=== PATIENT | female | born 1940 | race Caucasian/White ===

== ENCOUNTER 2016-11-01 01:36 | Emergency (ER) | payer MEDICARE, BC | END 2016-11-01 05:52 | disposition home or self-care (01) | LOC: ER 01:36 | CPT/HCPCS: 36415; 80053; 81001; 85025; 87077; 87088; 87186 ==

== ENCOUNTER 2016-11-06 20:49 | Emergency (ER) | payer MEDICARE, BC ==
[2016-11-06] MEDS ORDERED: SODIUM CHLORIDE 0.9% 500 ML IV ONE (21:45)
== END 2016-11-07 00:53 | disposition home or self-care (01) ==
LOC: ER 20:49
DX: R41.82 Altered mental status, unspecified (principal); F03.90 Unspecified dementia, unspecified severity, without behavioral disturbance, psychotic disturbance, mood disturbance, and anxiety; I10 Essential (primary) hypertension; E78.00 Pure hypercholesterolemia, unspecified; Z87.440 Personal history of urinary (tract) infections; Z79.82 Long term (current) use of aspirin
CPT/HCPCS: 36415 ×2; 70450 ×2; 71010 ×2; 80053 ×2; 81001 ×2; 85025 ×2; 87088 ×2; 96360 ×2; 96361 ×2; 99284; J7040